=== PATIENT | female | born 1945 | race Caucasian/White ===

== ENCOUNTER → 2024-02-20 16:10 | Outpatient (REF) | payer MEDICARE, OTHER, SELFPAY | LOC: HWRAD 16:10 | PROVIDERS: ATTENDING PHYSICIAN Family Medicine | DX: M79.89 Other specified soft tissue disorders (principal); M79.672 Pain in left foot | CPT/HCPCS: 73630 ==

== ENCOUNTER 2024-11-14 10:50 | Emergency (ER) | payer MEDICARE, OTHER, SELFPAY ==
[2024-11-14 10:53] VITALS: BP 130/76
[2024-11-14 11:44] VITALS: BMI 24.5
[2024-11-14 11:48] VITALS: BP 130/57
--- NOTE | 2024-11-14 12:41 | ED.GENMED ---
History of Present Illness
General
Chief Complaint: Skin Problem
Time Seen by Provider: 11/14/24 12:19
History of Present Illness
History of Present Illness:
79-year-old female presents to the emergency department for evaluation of nontraumatic right foot and ankle pain for the past 2 to 3 days. Has had gout in the past, states it feels similar. No fevers or chills. States she has intense itching as
well.
Review of Systems
Review of Systems
Allergies reviewed?: Yes
All Other Systems: ROS reviewed and negative except as documented in HPI and ROS
Phy Exam
Physical Exam
Physical Exam:
GEN: Well appearing, NAD, WDWN
HEENT: Oral mucosa moist, no scleral icterus
Cardiac: Regular rate
Lung: No respiratory distress, no tachypnea
MSK: Diffuse swelling/joint effusion to the right ankle, swelling to the right 1st MTP joint, mild diffuse erythema to mid foot
Skin: Good color, no pallor or jaundice, no rashes
Neuro: AO x3, moves all extremities freely
Psych: Calm, cooperative
Course
Orders/Labs/Results
Orders:
Orders
11/14/24 11:57
CR Foot - Right Min 3 Views Urgent
Reason For Exam: pain swelling of foot and very painful R great toe
Vital Signs
Initial and Last Documented VS:
Initial Vital Signs
Temp Pulse Resp BP Pulse Ox
98.0 F 91 18 130/76 100
11/14/24 10:53 11/14/24 10:53 11/14/24 10:53 11/14/24 10:53 11/14/24 10:53
Last Documented Vital Signs
Temp Pulse Resp BP Pulse Ox
98.0 F 84 16 130/57 97
11/14/24 10:53 11/14/24 11:48 11/14/24 11:48 11/14/24 11:48 11/14/24 12:44
MDM/Problems Addressed
MDM/Problems Addressed:
Exam consistent with acute gout, discussed potential benefit of ankle arthrocentesis however patient declines this which is not unreasonable. Will start colchicine empirically
*Pulse Oximetry
SaO2: 97
Oxygen Mode of Delivery: Room air
Patient hypoxic: no
*Critical Care Note
Total Time (30-74mins, 75-104mins- exclusive of procedures): Not Applicable
ED Attending Note
-
Portions of this chart may have been created with voice recognition software.� Occasional wrong word or��sound alike� substitutions may have occurred due to the inherent limitations of voice recognition software.
Discharge Plan
Departure
Patient Disposition: Home (Routine Discharge)
Date of Disposition: 11/14/24
Time of Disposition: 12:44
Patient with high blood pressure during this ER visit?: No
Discharge Problem:
Acute gout
Instructions: Gout - ED discharge instructions
Prescriptions:
New
colchicine 0.6 mg capsule
0.6 mg PO DAILY Qty: 20 0RF
Rx Instructions:
1.2mg PO once, then 0.6mg PO one hr later; continue 0.6mg daily prn gout
Referrals:
Gena Buenrostro MD [Family Provider]
Interventions
Interventions:
*Risk Screen - Suicide Last Done: 11/14/24 10:53
*General Assessment Last Done: 11/14/24 11:44
*Neglect/Abuse Screening Last Done: 11/14/24 10:53
*ED- Fall Risk Assessment Last Done: 11/14/24 11:44
*ED COVID-19 Vaccine History Last Done: 11/14/24 11:44
*Nursing Disposition Last Done: 11/14/24 13:05
ED-Skin Assessment Last Done: 11/14/24 11:44
Discharge Date and Time
Discharge Date/Time: 11/14/24 13:05
Print Language: GERMAN
== END 2024-11-14 13:05 | disposition home or self-care (01) ==
LOC: EMR 10:50
PROVIDERS: EMERGENCY PHYSICIAN Emergency Medicine; FAMILY PHYSICIAN Family Medicine
DX: M10.9 Gout, unspecified (principal)
CPT/HCPCS: 99283; 73630